=== PATIENT | male | born 1960 | race Caucasian/White ===

== ENCOUNTER → 2021-06-15 | Outpatient (CLI) | payer OTHER ==
[2015-08-30 13:52] VITALS: BP 118/64
[~2021-06-15] MED LIST: ESOM40CA PO; LISI1TAB35 PO
--- NOTE | 2021-06-15 15:36 | RAD ---
XR CHEST 2V History: Reason: Productive cough. / Spl. Instructions: / History: Comparison: None. Findings: The cardiomediastinal silhouette is normal. Pulmonary vasculature is normal. There are mild linear op acities in the bilateral lung bases that may be atelectasis or scarring. No pleural effusion or pneum othorax is seen. There is no acute bone abnormality. IMPRESSION: No acute cardiopulmonary process. Electronically signed by: Sushil Guardado MD (06/15/2021 3:34 PM) [id number]
== END ==
LOC: RAD 15:06
PROVIDERS: ATTEND Family Medicine
DX: R05.9 Cough, unspecified (principal)
CPT/HCPCS: 71046